=== PATIENT | female | born 1955 | race Caucasian/White ===

== ENCOUNTER → 2023-09-02 | Outpatient (CLI) | payer MEDICARE, OTHER, SELFPAY ==
--- NOTE | 2023-09-02 08:50 | RAD_ITS ---
STUDY: X-RAY - ESOPHAGUS (BARIUM SWALLOW) WITH FLUOROSCOPY REASON FOR EXAM: Female, 67 years old. DYSPHAGIA TECHNIQUE: 25 view(s) of the esophagus were obtained following swallowing of barium. FLUOROSCOPY TIME (if supplied): (29 seconds) minutes/seconds. 5.2 mGy COMPARISON: None. FINDINGS: There is no demonstrated esophageal foreign body. There is no demonstrated stricture or mucosal abnormality. Normal gastroesophageal junction, without a demonstrated hiatal hernia. The patient ingested a 12 mm tablet of barium without any difficulty. There is atherosclerotic calcification of the aortic arch with tortuosity of the descending aorta. Normal visualized pulmonary parenchyma. Normal visualized osseous structures of the thorax. RAD/Esophagus Dual Contrast IMPRESSION: Normal plain film x-ray examination (barium swallow) of the esophagus. Electronically Signed: Hernando Cruz MD at 14:34 EDT ,
== END | disposition home or self-care (01) ==
LOC: RAD 08:43
PROVIDERS: PCP Nurse Practitioner Family; Referring Provider Internal Medicine Gastroenterology; Visit Provider Internal Medicine Gastroenterology
DX: R13.10 Dysphagia, unspecified (principal)
CPT/HCPCS: 74221

== ENCOUNTER 2025-07-06 08:22 | Outpatient (RCR) | payer MEDICARE, OTHER, SELFPAY ==
--- NOTE | 2025-07-06 11:48 | HP.OTEVAL_ITS ---
Patient's Visit Information Visit Information Visit Information: FLOYD MCCARTY is a 69 year old F, referred to Occupational Therapy by Dr. Serafin Figueroa MD, with a diagnosis of arthritis unspecified. Date of Evaluation: 07/06/25 Occupational Therapist: EDILIA Pozo/Isaura, CHT Subjective Subjective: This 69 year old female was seen for OT eval with dx OA bilateral hands. pt states she has been dealing with OA symptoms of pain and stiffness for a while- more difficulty with increase use of hands- pt very active with gardening, sewing and washing windows . pt states with tasks that take longer fingers tend to be more stiff/sore. pt is here for orthosis and ed. on dx. Pain left/right: Current Pain Intensity: 3 Pain Intensity Range: 2 and 3 ROM ROM Comments: pt demo with OA deformities of all digits- left IF DIP deviation of 15* and rotation- with also hyper ext at PIP of 10* noted CMC OA deformities as well bilaterally Sensation Sensation Comments: denies Quick DASH-Disab of Arm,Shoulder& Hand Quick DASH Score: 11.3625 Goals Goal:: Pt will demo understanding of joint protection and ergonomics when performing BADLs and IADLs by d/c Pt will demo understanding of adaptive Equipment use to decrease stress on joints to allow pt to perform BADSL and IADLS at LISA level. Goal:: Pt will demo understanding of using supportive bracing 80% of workday/ADLS to decrease stress on tendon origin to allow healing and decrease pain by end of 1nd session. Rehabilitation General Assessment: pt arrives with bilateral OA deformities. pts left IF DIP sig. deformity- and demo need for supportive orthosis- therapist steven. and ed. pt on use- therapist also ed. pt on use of compression gloves to support circulation and decrease stiffness- ed. pt on use of cool tap water with light ROM ex. to decrease joint swelling- and use heat at needed to decrease joint pain and stiffness- therapist ed. pt this will vary based on her activity. Therapist ed. pt on gardening ergo- and joint protection with sewing. pt demo understanding and agree to POC. Rehabilitation Potential: Good Anticipated Interventions Anticipated Interventions: Orthoses, Joint Protection/Energy Conservation, Ergonomic Education, Fine Motor Coord/Charles and Home Program Visit Plan Duration: pt to perform HEP General Plan: ed.pt on use of oval 8 to limit stress on joints with activity- ed. pt on use of compression gloves when joints are feeling swollen ed. on pts gardening ergonomics joint protection brionna. TEXT: Thank you for the opportunity to evaluate your patient. For Medicare and Medicare HMO plans, please review the plan of care and approve it. It will need to be FAXED BACK to us at [phone] for Medicare purposes. Please let me know if there are questions or concerns regarding this plan of care. Physician Signature: Date:
== END 2025-07-06 19:00 | disposition home or self-care (01) ==
LOC: OT 08:22
PROVIDERS: PCP Nurse Practitioner Family; Referring Provider Orthopaedic Surgery; Visit Provider Orthopaedic Surgery
DX: M13.849 Other specified arthritis, unspecified hand (principal)
CPT/HCPCS: 97166; 97167